=== PATIENT | male | born 1965 | race American Indian/Alaskan Native ===

== ENCOUNTER → 2020-09-05 11:42 | Outpatient (CLI) | payer OTHER ==
[~2020-09-05 11:42] MED LIST: AMLODIPINE-OLM1 EAC2 PO; DECADRON4 MG PO; GYNE-LOTRIMIN45 GM VAG; IVERMECTIN3 MG PO; LASIX40 MG PO; LOSARTAN POTASS50 MG; NORVASC5 MG PO; PEPCID AC10 MG PO; PROTONIX40 MG; TOPROL XL50 M1; ZESTRIL10 M1 PO
== END | disposition home or self-care (01) ==
LOC: LAB 11:42
PROVIDERS: ATTEND Internal Medicine
DX: E78.2 Mixed hyperlipidemia (principal); E03.8 Other specified hypothyroidism; E55.9 Vitamin D deficiency, unspecified; Z12.5 Encounter for screening for malignant neoplasm of prostate; Z12.11 Encounter for screening for malignant neoplasm of colon

== ENCOUNTER 2020-09-06 12:37 | Outpatient (CLI) | payer OTHER ==
[~2020-09-06 12:37] MED LIST changes: -GYNE-LOTRIMIN45 GM VAG; -IVERMECTIN3 MG PO; -LOSARTAN POTASS50 MG; -PROTONIX40 MG; -TOPROL XL50 M1
== END 2020-09-06 12:41 | disposition home or self-care (01) ==
LOC: LAB 12:37
PROVIDERS: ATTEND Internal Medicine
DX: E03.8 Other specified hypothyroidism (principal); E78.2 Mixed hyperlipidemia; E55.9 Vitamin D deficiency, unspecified; Z12.5 Encounter for screening for malignant neoplasm of prostate; Z12.11 Encounter for screening for malignant neoplasm of colon

== ENCOUNTER 2020-09-08 18:11 | Emergency (ER) | payer OTHER ==
[~2020-09-08] VITALS: Ht 154.9 cm; Wt 65.8 kg
[2020-09-08] MEDS ORDERED: LOSARTAN POTASS50 MG (19:17)
[2020-09-08] MEDS ORDERED: TOPROL XL50 M1 (19:17)
[2020-09-08] MEDS ORDERED: PROTONIX40 MG (19:17)
[2020-09-08] MEDS ORDERED: GYNE-LOTRIMIN45 GM VAG (19:58)
[2020-09-08] MEDS ORDERED: IVERMECTIN3 MG PO (19:58)
== END 2020-09-08 20:11 | disposition home or self-care (01) ==
LOC: ER 18:11
DX: R21 Rash and other nonspecific skin eruption (principal)